=== PATIENT | male | born 1995 | race Caucasian/White ===

== ENCOUNTER 2025-03-07 05:47 | Emergency (ER) | payer OTHER ==
[~2025-03-07] VITALS: Ht 188 cm; Wt 86.2 kg
[2025-03-07 05:54] VITALS: BP 126/79; TEMP 98.6
[2025-03-07 06:10] VITALS: O2SAT 98
== END 2025-03-07 06:25 ==
LOC: ER 05:50
DX: F11.10 Opioid abuse, uncomplicated (principal); F19.10 Other psychoactive substance abuse, uncomplicated